=== PATIENT | male | born 1985 | race Caucasian/White ===

== ENCOUNTER 2017-09-26 08:00 | Outpatient (CLI) | payer OTHER ==
--- NOTE | 2017-09-26 16:15 | CT Report ---
Procedure Date: 09/26/2017 Accession Number: [id number] / [id number] Procedure: CT - Upper Extremity Right W/O CPT Code: FULL RESULT: EXAM: RIGHT ELBOW CT WITHOUT CONTRAST EXAM DATE: 09/26/2017 08:40 AM. CLINICAL HISTORY: Radial head fracture. COMPARISON: None. TECHNIQUE: Thin-section axial images were acquired of the elbow without contrast. Post-processing: Coronal and sagittal reformats. Other: None. In accordance with CT protocol optimization, one or more of the following dose reduction techniques were utilized for this exam: automated exposure control, adjustment of mA and/or KV based on patient size, or use of iterative reconstructive technique. FINDINGS: Bones: There is a complex comminuted and displaced intra-articular fracture of the radial head. The more dominant 1.9 x 1 x 1.5 cm fracture fragment, which includes the posterior aspect of the radial head, is rotated posteriorly by approximately 90 degrees. No bone lesions. Joints: Small to moderate size joint effusion. No dislocation. Musculature: Normal. No fatty atrophy. Other: None. IMPRESSION: 1. Complex, comminuted and displaced intra-articular fracture of the radial head. The more dominant fracture fragment which includes the posterior aspect of the radial head is rotated posteriorly by approximately 90 degrees. 2. Small to moderate-sized joint effusion. RADIA
== END 2017-09-26 08:01 | disposition home or self-care (01) ==
LOC: DI 08:00
PROVIDERS: ATTEND Orthopaedic Surgery
DX: S52.121A Displaced fracture of head of right radius, initial encounter for closed fracture (principal)

== ENCOUNTER 2019-06-15 19:58 | Emergency (ER) | payer SELFPAY ==
[2019-06-15 20:07] VITALS: BP 147/91
[2019-06-15] MEDS ORDERED: cephALEXin 250 MG CAPSULE PO STA (20:23)
[2019-06-15] MEDS ORDERED: CEPHALEXIN 250 MG Prepack 8 CAP BOTTLE PO STA (20:23)
--- NOTE | 2019-06-15 20:26 | ED Physician Documentation ---
PD HPI OPHTHO - Stated complaint Stated Complaint: FACIAL PX/SWELLING - Chief complaint Chief Complaint: Heent - History obtained from History obtained from: Patient (He was has a bump on the right side of the face. Is become inflamed recently. He had an inflamed before and required antibiotics. Never had it incised.) Review of Systems Constitutional: denies: Fever, Chills Throat: denies: Dental pain / toothache, Sore throat Cardiac: denies: Chest pain / pressure, Palpitations PD PAST MEDICAL HISTORY - Present Medications Home Medications: Ambulatory Orders Medication Instructions Recorded Confirmed Cephalexin [Keflex] 500 mg PO Q6H #28 capsule 06/15/19 - Allergies Allergies/Adverse Reactions: Allergies Allergy/AdvReac Type Severity Reaction Status Date / Time No Known Drug Allergies Allergy Verified 06/15/19 20:03 PD ED PE NORMAL - Vitals Vital signs reviewed: Yes - General General: Alert and oriented X 3, No acute distress - HEENT HEENT: PERRL, EOMI, Other (There is an inflamed and infected sebaceous cyst just anterior to the right TMJ with some right-sided facial swelling) - Neuro Neuro: Alert and oriented X 3, Normal speech Results - Vitals Vitals: Vital Signs - 24 hr 06/15/19 20:03 Temperature 36.5 C Heart Rate 94 Respiratory 16 Rate Blood Pressure 147/91 H O2 Saturation 99 Oxygen O2 Source Room air Procedures - Abscess I&D (location) R face cyst Preparation: Chlorhexadine, Lidocaine 1% Incision: Incised with scalpel, Purulent drainage, Loculations broken, Culture obtained. No: Packed Other: Pt tolerated well, Dressing applied, Antibiotic prescribed Departure - Departure Disposition: 01 Home, Self Care Clinical Impression: Sebaceous cyst Condition: Good Record reviewed to determine appropriate education?: Yes Instructions: ED Cyst Sebaceous Infec IandD Follow-Up: CARMELO ROGEL [Physician No Access] - Prescriptions: Cephalexin [Keflex] 500 mg PO Q6H #28 capsule Comments: Return if it is not improving or if worse. We will culture it and if the resistant organism is identified we will call you in a couple of days to change her antibiotics. At some points when it is all healed you should follow-up with a surgeon, 1 is listed on this form for definitive removal.
[2019-06-15] MEDS ORDERED: BUFFERED LIDOCAINE 10 ML SYRINGE SUBQ STA (20:36)
== END 2019-06-15 21:08 | disposition home or self-care (01) ==
LOC: ED 19:58
DX: L72.3 Sebaceous cyst (principal)
CPT/HCPCS: 10060; 81599; 87070; 87205; 99283; A9270